=== PATIENT | female | born 1995 | race Two or more races ===

== ENCOUNTER 2018-12-13 17:32 | Emergency (ER) | payer MEDICAID ==
[~2018-12-13] VITALS: Ht 162.6 cm; Wt 52.0 kg
[2018-12-13] MEDS ORDERED: LORAZEPAM 1MG TABLET PO ONE (20:30)
[2018-12-13 21:56] VITALS: BP 110/65
== END 2018-12-13 22:00 | disposition home or self-care (01) ==
LOC: ER 18:47
DX: F41.9 Anxiety disorder, unspecified (principal)
CPT/HCPCS: 93005; 99283

== ENCOUNTER 2018-12-13 22:15 | Emergency (ER) | payer MEDICAID ==
[~2018-12-13] VITALS: Ht 162.6 cm; Wt 52.0 kg
[2018-12-14] MEDS ORDERED: HYDROXYZINE 25MG TABLET PO ONE (14:00)
[2018-12-14] MEDS: SERTRALINE HCL 25MG TABLET PO SCH (14:52)
[2018-12-15] MEDS: SERTRALINE HCL 25MG TABLET PO SCH (09:28)
[2018-12-16] MEDS: SERTRALINE HCL 25MG TABLET PO SCH (09:00)
[2018-12-16 14:03] VITALS: BP 110/65
== END 2018-12-16 14:10 | disposition home or self-care (01) ==
LOC: ER 22:15
DX: F41.9 Anxiety disorder, unspecified (principal); F43.10 Post-traumatic stress disorder, unspecified; Z59.0 Homelessness
CPT/HCPCS: 99283